=== PATIENT | male | born 1985 | race Caucasian/White ===

== ENCOUNTER 2024-10-26 09:27 | Emergency (ER) | payer OTHER ==
[~2024-10-26] VITALS: Ht 177.8 cm; Wt 89.8 kg
[~2024-10-26 09:27] MED LIST: Vibramycin100 MG PO
[2024-10-26 09:40] VITALS: BP 139/87
[2024-10-26] MEDS ORDERED: Fluorescein Sod 1MG Opth Strips LEFTEYE ONE ×2 (09:45→10:15)
[2024-10-26] MEDS ORDERED: Tetracaine HCl/Pf 0.5% Opth Soln 4 ml LEFTEYE ONE (09:45)
[2024-10-26] MEDS ORDERED: Erythromycin 0.5% Opth Oint 1 gm LEFTEYE ONE (10:30)
[2024-10-26] MEDS ORDERED: ERYT.5TO LEFTEYE ×2 (10:32→10:38)
[2024-10-26] MEDS ORDERED: KETOROLAC TROMET5 ML TOP ×2 (10:32→10:38)
== END 2024-10-26 10:44 | disposition home or self-care (01) ==
LOC: ER 09:27
DX: S05.32XA Ocular laceration without prolapse or loss of intraocular tissue, left eye, initial encounter (principal); F17.200 Nicotine dependence, unspecified, uncomplicated; W22.09XA Striking against other stationary object, initial encounter
CPT/HCPCS: 99283; A9270